=== PATIENT | female | born 1970 | race Caucasian/White ===

== ENCOUNTER → 2023-10-31 14:17 | Outpatient (REF) | payer BC, SELFPAY | LOC: HWRAD 14:17 | PROVIDERS: ATTENDING PHYSICIAN Surgery; FAMILY PHYSICIAN Nurse Practitioner Adult Health | DX: R92.8 Other abnormal and inconclusive findings on diagnostic imaging of breast (principal); K76.89 Other specified diseases of liver | CPT/HCPCS: 76700 ==

== ENCOUNTER → 2024-01-20 08:44 | Outpatient (REF) | payer BC, SELFPAY | LOC: HWRAD 08:44 | PROVIDERS: ATTENDING PHYSICIAN Obstetrics & Gynecology; FAMILY PHYSICIAN Nurse Practitioner Adult Health | DX: N39.0 Urinary tract infection, site not specified (principal); N81.3 Complete uterovaginal prolapse | CPT/HCPCS: 76830; 76856 ==

== ENCOUNTER → 2024-05-06 06:53 | Outpatient (REF) | payer BC, SELFPAY | LOC: WDC 06:53 | PROVIDERS: ATTENDING PHYSICIAN Surgery; FAMILY PHYSICIAN Nurse Practitioner Adult Health | DX: Z12.31 Encounter for screening mammogram for malignant neoplasm of breast (principal) | CPT/HCPCS: 77063; 77067 ==

== ENCOUNTER 2024-07-13 06:09 | Day surgery (SDC) | payer BC, SELFPAY ==
[2024-07-01 08:35] VITALS: BMI 24.1
[2024-07-01 08:55] LABS: Hematocrit 42.4 % (37.0-47.0); Mean Corpuscular Hgb 29.7 pg (27.0-31.0); Mean Platelet Volume 10.2 fL (7.4-10.4); Platelet Count 310 10^3/uL (130-400); Red Blood Cell Count 4.71 10^6/uL (4.20-5.40); Red Cell Dist. Width 12.8 % (11.5-14.5); White Blood Cell Count 5.3 10^3/uL (4.8-10.8)
[2024-07-01 09:32] LABS: Blood Urea Nitrogen 12 mg/dl (7-17); Calcium 9.3 mg/dl (8.4-10.2); Carbon Dioxide 25 mmol/L (22-30); Chloride 101 mmol/L (98-107); Estimated Creatinine Clearance 83 ml/min; Glucose 86 mg/dl (70-99); Potassium 4.4 mmol/L (3.5-5.1); Sodium 139 mmol/L (135-145); eGFR > 60.00
[2024-07-13] VITALS (15 sets, daily range): BP systolic 97–151; BP diastolic 49–84; BMI 24.1
[2024-07-13] MEDS: HEPARIN 5000 UNITS SC (06:40)
[2024-07-13] MEDS: Pyridium 200 MG PO (06:40)
[2024-07-13] MEDS: TRANSDERM-SCOP 1 PATCH TRANSDERM (06:52)
[2024-07-13] MEDS: TYLENOL 1000 MG PO (06:52)
[2024-07-13] MEDS: ZOFRAN 4 MG IV (11:01)
[2024-07-13] MEDS: NORMOSOL-R/PLASMALYTE-A 1000 IV (11:15)
[2024-07-13] MEDS: TYLENOL 650 MG PO (12:58)
[2024-07-13] MEDS: COMPAZINE 5 MG IV (14:12)
== END 2024-07-13 14:53 | disposition home or self-care (01) ==
LOC: SDS 06:09
PROVIDERS: ATTENDING PHYSICIAN Obstetrics & Gynecology; FAMILY PHYSICIAN Nurse Practitioner Adult Health; OTHER PHYSICIAN Obstetrics & Gynecology Gynecology
DX: N81.3 Complete uterovaginal prolapse (principal); N39.3 Stress incontinence (female) (male); N36.41 Hypermobility of urethra; N83.8 Other noninflammatory disorders of ovary, fallopian tube and broad ligament
CPT/HCPCS: 57425; 58571; 57250; 57288; 88305; 80048; 85027; 86850; 86900; 86901; 93005; C1763; C1771

== ENCOUNTER → 2024-08-05 08:00 | Outpatient (REF) | payer BC, SELFPAY | LOC: RAD 08:00 | PROVIDERS: ATTENDING PHYSICIAN Nurse Practitioner Adult Health | DX: Z00.00 Encounter for general adult medical examination without abnormal findings (principal) | CPT/HCPCS: 77080 ==

== ENCOUNTER → 2024-11-02 08:16 | Outpatient (REF) | payer BC, SELFPAY | LOC: MRI 3T 08:16 | PROVIDERS: ATTENDING PHYSICIAN Surgery; FAMILY PHYSICIAN Nurse Practitioner Adult Health | DX: R92.2 Inconclusive mammogram (principal); Z80.3 Family history of malignant neoplasm of breast | CPT/HCPCS: 77049; A9585 ==

== ENCOUNTER 2024-11-24 10:59 | Outpatient (RCR) | payer BC, SELFPAY | END 2024-11-24 23:59 | disposition home or self-care (01) | LOC: RPT 10:59 | PROVIDERS: ATTENDING PHYSICIAN Obstetrics & Gynecology Gynecology; FAMILY PHYSICIAN Family Medicine | DX: N94.10 Unspecified dyspareunia (principal); M62.81 Muscle weakness (generalized); Z73.6 Limitation of activities due to disability; K59.09 Other constipation; Z85.850 Personal history of malignant neoplasm of thyroid; Z85.828 Personal history of other malignant neoplasm of skin; Z85.89 Personal history of malignant neoplasm of other organs and systems | CPT/HCPCS: 97140; 97163; 97530 ==

== ENCOUNTER 2024-12-05 10:13 | Emergency (ER) | payer BC, SELFPAY ==
[2024-12-05 10:20] VITALS: BP 173/100
--- NOTE | 2024-12-05 11:23 | ED.GENMED ---
History of Present Illness
General
Chief Complaint: Facial Problem
Source: patient
Exam Limitations: none
Time Seen by Provider: 12/05/24 11:03
History of Present Illness
History of Present Illness:
54yoF with a history of hypothyroidism, osteoporosis, and anxiety presenting for evaluation of concern for facial asymmetry. Patient received Botox injections 6 days ago. She typically only receives Botox injections in her forehead but she did
receive several injections in her lower face. Three days after receiving the Botox, she started to feel a tightness sensation in her left lower facial region. Her noticed that she had some swelling in that area yesterday and she looked at
herself in the mirror and noticed that her smile was asymmetrical. She states her lower lip on the left side seems higher than the right side. She is otherwise asymptomatic and denies any paresthesias, dental pain, speech disturbance, dysphagia,
headache, visual changes, weakness, balance problems, chest pain, shortness of breath.
Past History
Past History
ED Past Medical History: Other (thyroid ca)
ED Past Surgical History: Other (thyroid)
Social History
Drug: None
Personal:
Living: with family
Phy Exam
General Physical Exam
General Presentation: well appearing and no apparent distress
General age: appears stated age
General Skin: warm and dry
General Habitus: normal
General Mental: alert
Neurological Exam
Neurological Exam: alert, CN II-XII intact, no motor deficits, no sensory deficits, speech normal and other (L lower lip appears slightly higher than R. No facial droop/flattening of nasolabial fold. CN 2-12 intact. PERRL. EOMs intact. Visual hernandez
normal. Negative drift x4. Normal finger to nose and heel to garcia bilaterally. )
NIH Stroke Score
Level of Consciousness: 0 - Alert
LOC questions: 0-Answers both correctly
LOC Commands: 0-Performs both correctly
Best Gaze: 0-Normal
Visual Hernandez: 0=Normal, no visual loss
Facial palsy: 0=Normal, symmetrical
Motor - Right Arm: 0=No drift 10 seconds
Motor - Left Arm: 0=No drift 10 seconds
Motor - Right Le-No drift 5 seconds
Motor - Left Le-No drift 5 seconds
Limb Ataxia: 0-Absent
Sensation: 0-Normal
Best Language: 0-No aphasia
Dysarthria: 0-Normal
Extinction and Inattention: 0-No abnormality
Total Score:: 0
Course
Vital Signs
Initial and Last Documented VS:
Initial Vital Signs
Temp Pulse Resp BP Pulse Ox
97.7 F 94 18 173/100 100
12/05/24 10:20 12/05/24 10:20 12/05/24 10:20 12/05/24 10:20 12/05/24 10:20
Last Documented Vital Signs
Temp Pulse Resp BP Pulse Ox
97.7 F 74 18 146/78 100
12/05/24 10:20 12/05/24 11:36 12/05/24 10:20 12/05/24 11:36 12/05/24 10:20
MDM/Problems Addressed
Differential Diagnosis Includes:
54yoF here with facial tightness/asymmetry that started a few days after receiving Botox. She is hypertensive in triage although admits to being very anxious. Vitals otherwise normal. The left lower lip appears slightly elevated compared to the
contralateral side. There is no facial droop or flattening of nasolabial fold. Cranial nerves intact and neuro exam is nonfocal. NIHSS 0.
Presentation consistent with side effect of Botox. No clinical evidence of CVA or [place] palsy. She was advised to f/u with her plastic surgeon and PCP. Strict ED return precautions discussed. Patient in agreement with plan and was discharged in
stable condition.
*Critical Care Note
Total Time (30-74mins, 75-104mins- exclusive of procedures): Not Applicable
ED Attending Note
-
Portions of this chart may have been created with voice recognition software.� Occasional wrong word or��sound alike� substitutions may have occurred due to the inherent limitations of voice recognition software.
Discharge Plan
Departure
Patient Disposition: Home (Routine Discharge)
Date of Disposition: 12/05/24
Time of Disposition: 11:26
Patient with high blood pressure during this ER visit?: Yes
Discharge Problem:
S/P Botox injection, Facial asymmetry, acquired
Instructions: Botulinum toxin injections
Prescriptions:
No Action
paroxetine HCl [Paxil] 10 MG tablet
10 mg PO DAILY
levothyroxine [Synthroid] 125 mcg Tablet
125 mcg PO DAILY
pantoprazole 20 mg Tablet,Delayed Release (Dr/Ec)
20 mg PO DAILY
famotidine 20 mg Tablet
20 mg PO DAILY
multivitamin Tablet
1 tab PO DAILY
tretinoin 0.025 % Cream
1 applic TOPICAL HS
estradiol 0.075 mg/24 hr Patch Weekly
1 patch TRANSDERMAL QWEEK
polyethylene glycol 3350 [Miralax] 17 gram/dose Powder
4 g PO DAILY
progesterone micronized 100 mg Capsule
100 mg PO DAILY
cholecalciferol (vitamin D3) [Vitamin D3] 50 mcg (2,000 unit) Tablet
50 mcg PO DAILY
biotin 1 mg Capsule
1 mg PO DAILY
collagen
1 dose PO DAILY
Activity Restrictions/Additional Instructions:
Please call your plastic surgery team tomorrow for follow-up. Return to the ER immediately with any new or worsening symptoms.
Interventions
Interventions:
*Risk Screen - Suicide Last Done: 12/05/24 10:20
*General Assessment Last Done: 12/05/24 10:20
*Neglect/Abuse Screening Last Done: 12/05/24 10:20
*ED- Fall Risk Assessment Last Done: 12/05/24 11:29
*ED COVID-19 Vaccine History Last Done: 12/05/24 11:29
*Nursing Disposition Last Done: 12/05/24 11:42
ED- Neurological Assessment Last Done: 12/05/24 11:32
ED-Skin Assessment Last Done: 12/05/24 11:32
Discharge Date and Time
Discharge Date/Time: 12/05/24 11:56
Print Language: SERBIAN
[2024-12-05 11:29] VITALS: BMI 21.0
[2024-12-05 11:36] VITALS: BP 146/78
== END 2024-12-05 11:56 | disposition home or self-care (01) ==
LOC: EMR 10:13
PROVIDERS: EMERGENCY PHYSICIAN Emergency Medicine
DX: M95.2 Other acquired deformity of head (principal); T48.295A Adverse effect of other drugs acting on muscles, initial encounter; E03.9 Hypothyroidism, unspecified
CPT/HCPCS: 99282

== ENCOUNTER 2024-12-22 06:39 | Outpatient (RCR) | payer BC, SELFPAY | END 2024-12-22 23:59 | disposition home or self-care (01) | LOC: RPT 06:39 | PROVIDERS: ATTENDING PHYSICIAN Obstetrics & Gynecology Gynecology; FAMILY PHYSICIAN Family Medicine | DX: N94.10 Unspecified dyspareunia (principal); M62.81 Muscle weakness (generalized); Z73.6 Limitation of activities due to disability; K59.09 Other constipation; Z85.850 Personal history of malignant neoplasm of thyroid; Z85.828 Personal history of other malignant neoplasm of skin; Z85.89 Personal history of malignant neoplasm of other organs and systems | CPT/HCPCS: 97014; 97110; 97112; 97140; 97530 ==

== ENCOUNTER 2025-01-27 07:13 | Outpatient (RCR) | payer OTHER, SELFPAY | END 2025-01-27 23:59 | disposition home or self-care (01) | LOC: RPT 07:13 | PROVIDERS: ATTENDING PHYSICIAN Obstetrics & Gynecology Gynecology; FAMILY PHYSICIAN Family Medicine | DX: N94.10 Unspecified dyspareunia (principal); M62.81 Muscle weakness (generalized); Z73.6 Limitation of activities due to disability; K59.09 Other constipation; Z85.850 Personal history of malignant neoplasm of thyroid; Z85.828 Personal history of other malignant neoplasm of skin; Z85.89 Personal history of malignant neoplasm of other organs and systems | CPT/HCPCS: 97014; 97110; 97112; 97530 ==

== ENCOUNTER 2025-02-22 12:03 | Outpatient (RCR) | payer OTHER, SELFPAY | END 2025-02-22 23:59 | disposition home or self-care (01) | LOC: RPT 12:03 | PROVIDERS: ATTENDING PHYSICIAN Obstetrics & Gynecology Gynecology; FAMILY PHYSICIAN Family Medicine | DX: N94.10 Unspecified dyspareunia (principal); M62.81 Muscle weakness (generalized); Z73.6 Limitation of activities due to disability; K59.09 Other constipation; Z85.850 Personal history of malignant neoplasm of thyroid; Z85.828 Personal history of other malignant neoplasm of skin; Z85.89 Personal history of malignant neoplasm of other organs and systems | CPT/HCPCS: 97014; 97112; 97530 ==

== ENCOUNTER 2025-03-17 10:12 | Outpatient (RCR) | payer OTHER, SELFPAY | END 2025-03-31 12:18 | disposition home or self-care (01) | LOC: RPT 10:12 | PROVIDERS: ATTENDING PHYSICIAN Obstetrics & Gynecology Gynecology; FAMILY PHYSICIAN Family Medicine | DX: N94.10 Unspecified dyspareunia (principal); M62.81 Muscle weakness (generalized); Z73.6 Limitation of activities due to disability; K59.09 Other constipation; Z85.850 Personal history of malignant neoplasm of thyroid; Z85.828 Personal history of other malignant neoplasm of skin; Z85.89 Personal history of malignant neoplasm of other organs and systems | CPT/HCPCS: 97014; 97110; 97112; 97530 ==

== ENCOUNTER → 2025-05-10 07:34 | Outpatient (REF) | payer OTHER, SELFPAY | LOC: WDC 07:34 | PROVIDERS: ATTENDING PHYSICIAN Surgery | DX: Z12.31 Encounter for screening mammogram for malignant neoplasm of breast (principal); R92.2 Inconclusive mammogram; Z80.3 Family history of malignant neoplasm of breast | CPT/HCPCS: 77063; 77067 ==